=== PATIENT | male | born 1955 | race Hispanic/Latino ===

== ENCOUNTER 2024-05-07 07:00 | Day surgery (SDC) | payer MEDICARE ==
[2024-05-06 10:17] VITALS: BP 133/84; PULSE 66; RESP 18; TEMP 97.2
[2024-05-06 10:18] LABS: BASOPHILS # (AUTO) 0.09 K/uL (0.00-0.20); EOSINOPHILS # (AUTO) 0.26 K/uL (0.00-0.70); EOSINOPHILS % (AUTO) 2.9 % (0.0-8.0); IMMATURE GRANULOCYTE ABSOLUTE 0.03 K/uL (0-1); LYMPHOCYTES # (AUTO) 2.2 K/uL (1.0-4.8); LYMPHOCYTES % (AUTO) 24.1 % (21.0-51.0); MEAN CORPUSCULAR HEMOGLOBIN 30.5 pg (27.0-33.0); MEAN CORPUSCULAR VOLUME 92.3 fL (79-99); MONOCYTES # (AUTO) 0.8 K/uL (0.1-1.0); MONOCYTES % (AUTO) 8.6 % (3.0-13.0); NEUTROPHILS # (AUTO) 5.8 K/uL (1.8-7.7); NEUTROPHILS % (AUTO) 63.1 % (40.0-77.0); PLATELET COUNT (AUTO) 260 K/uL (130-400); RED BLOOD CELL COUNT(AUTO) 5.74 MIL/uL (4.50-6.20); RED CELL DISTRIBUTION WIDTH 13.8 % (11.0-15.5); WHITE BLOOD COUNT (AUTO) 9.1 K/uL (4.8-10.8)
[2024-05-06 10:25] LABS: CREATININE 1.5 mg/dL (0.5-1.3); POTASSIUM 4.8 mmol/L (3.5-5.1)
[2024-05-06 10:28] LABS: INR 1.13 (0.85-1.15); PROTHROMBIN TIME 12.5 SEC (9.6-11.6)
[2024-05-06 10:29] LABS: PARTIAL THROMBOPLASTIN TIME 31.5 SEC (26.3-35.5)
[~2024-05-07] VITALS: Ht 170.2 cm; Wt 100.3 kg
[~2024-05-07 07:00] MED LIST: ATOR40TA69 PO; CLOP75TA32 PO; DONE10TA43 PO; EMPA25TA PO; FAMO20TA8 PO; FEXO1TAB8 PO; METO-409 PO; RIVA15TA PO; SERT-440 PO; TIRZ7.5P SQ; VITAD50000 PO; VITAMIN B12 PO
[2024-05-07] MEDS: 0.9%NACL 1000ML 1,000 ML IV SCH (07:38)
[2024-05-07 07:39] VITALS: BP 142/86; PULSE 81; RESP 16; TEMP 97
[2024-05-07] MEDS ORDERED: LIDOCAINE HCL 1% MDV 50ML VIAL ONE (09:13)
[2024-05-07] MEDS ORDERED: MEPERIDINE-PF 25 MG/ML SYG ONE ×2 (09:13→09:35)
[2024-05-07] MEDS ORDERED: MIDAZOLAM HCL 1 MG/ML 2ML VIAL ONE ×2 (09:13→09:35)
[2024-05-07] MEDS ORDERED: HEParin 10,000 UNIT/10ML (1,000 UNIT/ML) VIAL ONE (09:13)
[2024-05-07] MEDS ORDERED: HEParin-NS 1,000 UNIT/500 ML 1,000 ML IV ONE (09:14)
[2024-05-07] MEDS ORDERED: METO-409 PO (10:46)
[2024-05-07 11:05] VITALS: BP 141/90; PULSE 79; RESP 14; TEMP 97.2
[2024-05-07 11:20] VITALS: BP 134/84; PULSE 79; RESP 15
[2024-05-07 11:35] VITALS: BP 136/81; PULSE 82; RESP 14
[2024-05-07 11:50] VITALS: BP 141/81; PULSE 74; RESP 13
[2024-05-07 12:20] VITALS: BP 137/77; PULSE 73; RESP 15
--- NOTE | 2024-05-07 12:40 | NUR ---
Full and complete discharge instructions given to Patient and Family both verbally and in writing. All questions answered. Voiced understanding to Cardiac Ablation precautions, Groin site care and new Prescription. Patient denies c/o pain or discomfort. Groin site soft without sign of bleeding, swelling or hematoma. Dressing clean and dry. Pedal pulses intact to BLE's. Voided moderate amount of clear yellow urine. Ate 25% of Lunch provided and 300 mls of water. PIV removed with catheter tip intact. W/C to POV with and Daughter to home.
== END 2024-05-07 12:40 | disposition home or self-care (01) ==
LOC: DAH 07:00
PROVIDERS: ATTEND Internal Medicine Cardiovascular Disease
DX: I48.3 Typical atrial flutter (principal); I10 Essential (primary) hypertension; E11.9 Type 2 diabetes mellitus without complications; F17.210 Nicotine dependence, cigarettes, uncomplicated; Z79.01 Long term (current) use of anticoagulants; Z79.899 Other long term (current) drug therapy
CPT/HCPCS: 80048; 85025; 85610; 85730; 36415; 93653; 82948; C1894 ×2; C1732 ×2; A4649 ×2; C1760 ×2; J2250 ×2; J2175 ×2; J1644; J3490; A4215; A4222; A4221; A4663; A4216; A4606; A4223 ×3; 99156; 99157